=== PATIENT | female | born 1985 | race Hispanic/Latino ===

== ENCOUNTER 2020-07-11 01:41 | Emergency (ER) | payer SELFPAY ==
--- OUTSIDE RECORDS SUMMARY | 2020-07-11 01:50 | XMS REPORT | Continuity of Care Document ---
:1985 Author Organization [facility] t Address [address] [place] [address] Care Team Providers Name Role Phone Pcp Primary Care Physician Unavailable Dorian NICHOLS Attending Clinician Unavailable Ras HERRERA Attending Clinician Unavailable Unique Perez Attending Clinician Lon Lopez Attending Clinician Mason Schmidt Attending Clinician George Clark Jr Attending Clinician JANIYA GREGORY Attending Clinician Unavailable Carrington Reyes Attending Clinician Les Colin Attending Clinician Clayton Attending Clinician Mary Kramer Attending Clinician Payers Payer Name Policy Type Policy Number Effective Date Expiration Date Stu FLORES OPEN ACCESS [id number] 2018 00:00:00 MC POS Problems Condition Condition Condition Status Onset Resolution Last Treating Co mments Source Name Details Category Date Date Treatment Clinician Date OTHER Diagnosis Active 2019-06-17 Me moria 06-15 13:42:00 l OTHER 00:00: [place] 00 Active 06/16/2019 [facility] VAGINAL Diagnosis Active 2019-04-05 Me moria PAIN 2-17 16:02:00 l VAGINAL 00:00: [place] PAIN 00 Active 04/04/2019 [facility] OTHER Diagnosis Active 2018-04-23 Mem oria 3-08 23:00:00 l OTHER 00:00: [place] 00 Active 04/23/2018 [facility] SOB Diagnosis Active 2017-022017-12-09 Mem oria 0-04 09:34:00 l SOB 00:00: Naresh 00 Active 11/19/2017 [facility] [place] Problem Active 2019-06-18 M emoria a coli 5-05 22:13:59 l (organism) 00:00: Dewayne n [place] 00 a coli (organism) Active 06/20/2017 Problem 06/18/2019 06/20/2017 - MDRO E. coli - Urine/ - ESBL - urineProbl em added by Discern Expert. [facility] RECTAL Diagnosis Active 2017-06-20 Mem oria ABCESS 5-04 11:22:00 l RECTAL 09:00: [place] ABCESS 00 Active 06/19/2017 [facility] VAG DC Diagnosis Active 2017-02-28 Mem oria 1-13 11:34:00 l VAG DC 09:00: [place] 00 Active 02/28/2017 [facility] YEAST Diagnosis Active 2016-07-03 Mem oria INFECTION 5-18 11:18:00 l YEAST 00:00: Naresh INFECTION 00 Active 07/03/2016 [facility] MASS ON R Diagnosis Active 2014-09-29 Memoria GROIN AREA 8-14 14:47:00 l MASS ON 00:00: Naresh R GROIN 00 AREA Active 09/29/2014 [facility] PSYCH Diagnosis Active 2014-06-25 Mem oria (HALLUCINA 5-10 07:00:00 l TIONS) PSYCH 00:00: [place] "BAT BITE (HALLUCINA 00 ON ANKL TIONS) "BAT BITE ON ANKL Active 06/25/2014 [facility] Other Problem 2017-06-06 Memor ia specified 15:06:04 l bacterial Other Dewayne n agents as specified the cause bacterial of agents as diseases the cause classified of elsewhere diseases classified elsewhere 06/06/2017 [facility] Nicotine Problem 2018-06-08 Mem oria dependence 15:21:44 l , Nicotine Dewayne n cigarettes dependence , , uncomplica cigarettes aaron , uncomplica aaron 06/08/2018 [facility] Problem Resolve 2017-06-23 Me moria section d 01:34:05 l (procedure He rmann ) section (procedure ) Resolved Problem 06/23/2017 [facility] Drug abuse Problem Active 2019-06-18 M emoria (disorder) 22:13:59 l Drug Naresh abuse (disorder) Active Problem 06/18/2019 [facility] Bacterial Problem Active 2019-06-18 Me moria vaginosis 22:13:59 l (disorder) Dewayne n Bacterial vaginosis (disorder) Active Problem 06/18/2019 [facility] History of Past Illness Condition Condition Condition Status Onset Resolution Last Treating Co mments Source Name Details Category Date Date Treatment Clinician Date Anxiety Problem 2019-2019-04-06 2019-04-06 Memoria disorder, 2 22:46:23 22:46:23 l unspecifie Anxiety 18:00: Her núñez d disorder, 00 unspecifie d 04/04/2019 04/06/2019 [facility] Dissociati Problem 2019-04-06 2019-04-06 Memoria ve and 2 22:46:23 22:46:23 l conversion 18:00: Dewayne n disorder, Dissociati 00 unspecifie ve and d conversion disorder, unspecifie d 04/04/2019 04/06/2019 [facility] Acute Problem 2017-2018-06-08 2018-06-08 M emoria bronchitis 0-04 15:21:44 15:21:44 l , Acute 05:00: Naresh unspecifie bronchitis 00 d , unspecifie d 11/19/2017 06/08/2018 [facility] Acute Problem 2017-2017-06-23 2017-06-23 M emoria vaginitis - 01:34:05 01:34:05 l Acute 05:00: [place] vaginitis 00 06/20/2017 06/23/2017 [facility] Constipati Problem 2017-2017-06-23 2017-06-23 Memoria on, 06-20 01:34:05 01:34:05 l unspecifie 05:00: Dewayne n d Constipati 00 on, unspecifie d 06/20/2017 06/23/2017 [facility] Unspecifie Problem 2017-06-23 2017-06-23 Memoria d 5-05 01:34:05 01:34:05 l abdominal 05:00: Naresh pain Unspecifie 00 d abdominal pain 06/20/2017 06/23/2017 [facility] Encounter Problem 2017-06-06 2017-06-06 Memoria for 1-13 15:06:04 15:06:04 l screening 06:00: Naresh for Encounter 00 infections for with a screening predominan for tly sexual infections mode of with a transmissi predominan on tly sexual mode of transmissi on 02/28/2017 06/06/2017 [facility] Urinary Problem 2017-06-06 2017-06-06 Memoria tract 02-28 15:06:04 15:06:04 l infection, Urinary 06:00: Her núñez site not tract 00 specified infection, site not specified 02/28/2017 06/06/2017 [facility] Other Problem 2016-07-06 2016-07-06 M emoria specified 07-03 04:06:50 04:06:50 l noninflamm Other 05:00: Valerie nn atory specified 00 disorders noninflamm of vagina atory disorders of vagina 07/03/2016 07/06/2016 [facility] Discharge Problem 2014-10-02 2014-10-02 Memoria Diagnosis: 8-14 05:26:51 05:26:51 l Musculoske 05:00: Dewayne streeter letal pain Discharge 00 Diagnosis: Musculoske letal pain 09/29/2014 10/02/2014 [facility] Allergies, Adverse Reactions, Alerts Allergy Allergy Status Severity Reaction(s) Onset Inactive Treating Comm ents Source Name Type Date Date Clinician Sulfa DA Active U 2018- [facility] (Sulfona 9-11 [facility] Antibiot [facility] l of ics) [place] Sulfa DA Active U 2018- [facility]ulfona 7-27 [facility] No Known DA Active U 2018- [facility] Allergie 5-16 [facility] [place] s 00:00: d 00 [facility] Sulfa Propensi Active [place] (Sulfona ty to 11-15 Methodi mide adverse 00:00: st Antibiot reaction 00 ics) s to drug Sulfa Propensi Active Other (See Unknown, [facility] (Sulfona ty to Comments) 08-07 told as a [place] [facility] - mid adverse 00:00: child Medical Antibiot reaction 00 Center ics) s Sulfa DA Active U [facility] (Sulfona 06-21 [place] 00:00: d Antibiot 00 Medical ics) Center sulfa sulfa Active Memoria drugs drugs l Naresh Social History Social Habit Start Date Stop Date Quantity Comments Source Sex Assigned At [facility] Tobacco use and 2017-08-07 2017-08-07 Never used [facility] exposure 00:00:00 00:00:00 [facility] Alcohol intake 2017-08-07 2017-08-07 Current [facility] es - 00:00:00 00:00:00 non-drinker of [facility] nter alcohol (finding) Social History 2014-06-25 2014-06-25 [facility] 11:28:00 11:28:00 Smoking Status Start Date Stop Date Source Never smoker [facility] Medications Ordered Filled Start Stop Current Ordering Indication Dosage Frequency Signature Comments Components Source Medication Medication Date Date Medication? Clinician (SIG) Name Name Radha Yes Notes: Memoria - (Same As: l 03:02: Flexeril) Naresh 00 Acetaminoph Yes Notes: Frank tristian en 325 MG / 04-24 (Same as: l Hydrocodone 03:02: [place] Valerie nn Bitartrate 00 325/5) Do 5 MG Oral not exceed Tablet 4gm/day of [[place] acetaminop 5/325] hen. Ventolin 2017-02 Yes 2 puff, Memori a HFA 90 0-04 INHALER, l mcg/inh 07:43: Q4H, PRN Dewayne n inhalation 00 wheezing, aerosol coughing, with or adapter shortness of breath, # 8 gm, 0 Refill(s) Sodium 2017-02 No 3 mL, Memoria Chloride 0-04 Route: l 0.154 06:44: NEB, Drug [place] MEQ/ML 00 Form: Inhalant MISC, Solution Dosing Weight 55, kg, ONCE, Start date: 11/19/17 1:44:00 CDT, Stop date: 11/19/17 1:44:00 CDT Sodium 2017- No 1,000 mL, Memori a Chloride 0-04 1,000 l 0.9% 06:44: ml/hr, Naresh (Bolus) IV 00 Infuse Over: 1 hr, Route: IV, 1,000, Drug form: INJ, ONCE, Priority: STAT, Dosing Weight 55 kg, Start date: 11/19/17 1:44:00 CDT, Stop date: 11/19/17 1:44:00 CDT POLYETHYLEN 2018- Yes 17 gm, PO, Memoria E GLYCOL 5-05 Bedtime, l 3350 142 18:55: Dissolve Valerie nn MG/ML Oral 00 in 8 oz. Solution of water, [Miralax] X 7 day, # 1 ea, 1 Refill(s) Metronidazo Yes 500 mg = 1 Memoria le 500 MG 5-05 tab, PO, l Oral Tablet 18:53: Q12H, X 7 H ermann [Flagyl] 00 day, # 14 tab, 0 Refill(s) Omnipaque No Notes: Memori a 300 5-05 (Same l injectable 17:24: as:Omnipaq H ermann solution 00 ue 300). WASTE: F/P - Black; E - Municipal Trash [employer] Ondansetron No Notes: Frank tristian 5-05 (Same as: l 16:07: Zofran [place] 00 ODT) Saline No Notes: Memoria Flush 0.9% 5-05 (Same as: l 16:07: BD Naresh 00 Posiflush) Sodium No 1,000 mL, Memori a Chloride 5-05 1000 l 0.9% 16:07: ml/hr, [place] (Bolus) IV 00 Infuse Over: 1 hr, Route: IV, 1,000, Drug form: INJ, ONCE, Priority: STAT, Dosing Weight 53.182 kg, Start date: 06/20/17 11:07:00 CDT, Stop date: 06/20/17 11:07:00 CDT Ondansetron 2017- Yes 4 mg = 1 Me moria 4 MG 1-13 tab, PO, l Disintegrat 20:08: BID, PRN He rmann ing Tablet 00 Nausea and [Zofran] Vomiting, Dissolve tab under tongue, # 10 tab, 0 Refill(s) Zofran ODT No Notes: Memor ia 1-13 (Same as: l 20:08: Zofran [place] ODT) Cephalexin No 500 mg = 1 M emoria 500 MG Oral 1-13 cap, PO, l Capsule 19:53: BID, X 7 Dewayne n [Keflex] 00 day, # 14 cap, 0 Refill(s) Metronidazo No 500 mg = 1 Memoria le 500 MG 1-13 tab, PO, l Oral Tablet 19:52: BID, X 7 He rmann [Flagyl] 00 day, # 14 tab, 0 Refill(s) Zofran ODT No Notes: Memor ia 1-13 (Same as: l 18:41: Zofran Naresh ODT) Zithromax No Notes: Memori a 1-13 Take 1 l 18:40: hour Naresh 00 before or 2 hours after meals. (Same As: Zithromax) Rocephin No Notes: Memoria 1-13 (Same As: l 18:40: Rocephin) Naresh 00 azithromyci No 1,000 mg, M emoria n 500 mg 5-18 Route: PO, l oral tablet 16:25: Drug form: Union 00 TAB, ONCE, Dosing Weight 49.545, kg, Start date: 07/03/16 11:25:00 CDT, Stop date: 07/03/16 11:25:00 CDT, ABX Indication : Genital Tract Infection Rocephin No 250 mg, Memori a 5-18 Route: IM, l 16:25: Drug form: Union 00 PDR/INJ, ONCE, Dosing Weight 49.545, kg, Priority: STAT, Start date: 07/03/16 11:25:00 CDT, Stop date: 07/03/16 11:25:00 CDT, ABX Indication : Genital Tract Infection Acetaminoph Yes 1 tab, PO, Memoria en 300 MG / 8-14 Q6H, PRN l Codeine 20:35: for pain, Valerie nn Phosphate 00 X 3 day, # 30 MG Oral 12 tab, 0 Tablet Refill(s) [Tylenol with Codeine #3] Cyclobenzap Yes 10 mg, PO, Memoria rine 8-14 TID, PRN l hydrochlori 20:35: Muscle Herm flakita de 10 MG 00 Spasm, X 5 Oral Tablet day, # 15 [Flexeril] tab, 0 Refill(s) Saline No Notes: Memoria Flush 0.9% 09-29 (Same as: l 17:03: BD Naresh 00 Posiflush) Vital Signs Vital Name Observation Time Observation Value Comments Source Respitory Rate 2019-06-17 02:32:00 Memori al [place] Systolic (mm Hg) 2019-06-17 02:32:00 Frank rial Naresh Diastolic (mm Hg) 2019-06-17 02:32:00 Mem orial Naresh Height 2019-06-17 02:03:00 149.86 cm Memorial Naresh BMI Calculated 2019-06-17 02:03:00 Memori al [place] Weight 2019-06-17 02:03:00 [facility] Naresh Systolic (mm Hg) 2019-06-17 02:03:00 Frank rial Naresh Diastolic (mm Hg) 2019-06-17 02:03:00 Mem orial [place] Heart Rate 2019-06-17 02:03:00 [facility] [place] Respitory Rate 2019-06-17 02:03:00 Memori al Naresh Temperature Oral (F) 2019-06-17 02:03:00 98.5 F [facility] [place] Systolic (mm Hg) 2019-04-04 15:59:00 Frank rial [place] Diastolic (mm Hg) 2019-04-04 15:59:00 Mem orial [place] Heart Rate 2019-04-04 15:59:00 [facility] [place] Respitory Rate 2019-04-04 15:59:00 Memori al Naresh Temperature Oral (F) 2019-04-04 15:59:00 98.0 F [facility] [place] Height 2019-04-04 15:59:00 149.86 cm Memorial Naresh BMI Calculated 2019-04-04 15:59:00 Memori al [place] Weight 2019-04-04 15:59:00 [facility] [place] Heart Rate 2018-04-24 02:40:00 [facility] [place] Systolic (mm Hg) 2018-04-24 02:40:00 Frank rial [place] Diastolic (mm Hg) 2018-04-24 02:40:00 Mem orial [place] Temperature Oral (F) 2018-04-24 02:40:00 97.8 F [facility] Naresh Height 2018-04-24 02:40:00 149.86 cm Memorial Naresh Weight 2018-04-24 02:40:00 [facility] [place] BMI Calculated 2018-04-24 02:40:00 Memori al [place] Respitory Rate 2018-04-24 02:40:00 Memori al Naresh Systolic (mm Hg) 2017-11-19 07:19:00 Frank rial Naresh Diastolic (mm Hg) 2017-11-19 07:19:00 Mem orial [place] Respitory Rate 2017-11-19 07:19:00 Memori al Naresh Height 2017-11-19 06:00:00 149.86 cm [facility] Naresh Weight 2017-11-19 06:00:00 [facility] [place] BMI Calculated 2017-11-19 06:00:00 Memori al [place] Respitory Rate 2017-11-19 06:00:00 Memori al Naresh Heart Rate 2017-11-19 06:00:00 [facility] [place] Systolic (mm Hg) 2017-11-19 06:00:00 Frank rial [place] Diastolic (mm Hg) 2017-11-19 06:00:00 Mem orial [place] Temperature Oral (F) 2017-11-19 06:00:00 98.8 F [facility] Naresh Systolic (mm Hg) 2017-06-20 18:39:00 Frank rial [place] Diastolic (mm Hg) 2017-06-20 18:39:00 Mem orial [place] Heart Rate 2017-06-20 18:39:00 [facility] Naresh Respitory Rate 2017-06-20 18:39:00 Memori al Naresh Weight 2017-06-20 15:45:00 [facility] Naresh BMI Calculated 2017-06-20 15:45:00 Memori al Naresh Height 2017-06-20 15:45:00 149.86 cm [facility] Naresh Temperature Oral (F) 2017-06-20 15:45:00 98.3 F [facility] [place] Respitory Rate 2017-06-20 15:45:00 Memori al [place] Heart Rate 2017-06-20 15:45:00 [facility] Naresh Systolic (mm Hg) 2017-06-20 15:45:00 Frank rial Naresh Diastolic (mm Hg) 2017-06-20 15:45:00 Mem orial [place] Heart Rate 2017-02-28 20:16:00 [facility] [place] Respitory Rate 2017-02-28 20:16:00 Memori al Naresh Temperature Oral (F) 2017-02-28 20:16:00 98.2 F [facility] [place] Systolic (mm Hg) 2017-02-28 20:16:00 Frank rial Naresh Diastolic (mm Hg) 2017-02-28 20:16:00 Mem orial [place] Temperature Oral (F) 2017-02-28 17:01:00 98.5 F [facility] Naresh Systolic (mm Hg) 2017-02-28 17:01:00 Frank rial Naresh Diastolic (mm Hg) 2017-02-28 17:01:00 Mem orial [place] Heart Rate 2017-02-28 17:01:00 [facility] Naresh Respitory Rate 2017-02-28 17:01:00 Memori al Naresh Weight 2017-02-28 17:01:00 [facility] Naresh Height 2017-02-28 17:01:00 149.86 cm [facility] [place] BMI Calculated 2017-02-28 17:01:00 Memori al [place] BMI Calculated 2016-07-03 15:18:00 Memori al Naresh Weight 2016-07-03 15:18:00 [facility] [place] Systolic (mm Hg) 2016-07-03 15:18:00 Frank rial [place] Diastolic (mm Hg) 2016-07-03 15:18:00 Mem orial [place] Heart Rate 2016-07-03 15:18:00 [facility] Naresh Respitory Rate 2016-07-03 15:18:00 Memori al Naresh Temperature Oral (F) 2016-07-03 15:18:00 97.1 F [facility] Naresh Height 2016-07-03 15:18:00 149.86 cm [facility] Naresh Respitory Rate 2014-09-29 20:43:00 Memori al [place] Heart Rate 2014-09-29 20:43:00 [facility] [place] Systolic (mm Hg) 2014-09-29 20:43:00 Frank rial Naresh Diastolic (mm Hg) 2014-09-29 20:43:00 Mem orial Naresh Heart Rate 2014-09-29 20:21:00 [facility] Naresh Systolic (mm Hg) 2014-09-29 20:21:00 Frank rial [place] Diastolic (mm Hg) 2014-09-29 20:21:00 Mem orial Naresh Respitory Rate 2014-09-29 20:21:00 Memori al [place] Heart Rate 2014-09-29 19:21:00 [facility] Naresh Respitory Rate 2014-09-29 19:21:00 Memori al Naresh Systolic (mm Hg) 2014-09-29 19:21:00 Frank rial Naresh Diastolic (mm Hg) 2014-09-29 19:21:00 Mem orial Naresh Weight 2014-09-29 16:48:00 [facility] [place] Temperature Oral (F) 2014-09-29 16:48:00 97.2 F [facility] Naresh BMI Calculated 2014-09-29 16:48:00 Memori al Naresh Height 2014-09-29 16:48:00 149.86 cm [facility] Naresh Weight 2014-06-25 10:59:00 [facility] Naresh BMI Calculated 2014-06-25 10:59:00 Memori al [place] Respitory Rate 2014-06-25 10:59:00 Memori al [place] Systolic (mm Hg) 2014-06-25 10:59:00 Frank rial [place] Diastolic (mm Hg) 2014-06-25 10:59:00 Mem orial [place] Heart Rate 2014-06-25 10:59:00 [facility] [place] Temperature Oral (F) 2014-06-25 10:59:00 98.6 F [facility] Naresh Height 2014-06-25 10:59:00 147.32 cm [facility] Naresh Procedures Procedure Date / Time Performed Performing Clinician [facility] Plan of Care Planned Activity Planned Date Details Comments Source Future Scheduled 2019-10-[address] [facility] - Test 00:00:00 (#1) [code = Medical Center INFLUENZA VACCINE (#1)] Future Scheduled [address] [facility] - Test 00:00:00 malignant neoplasm Medical C enter of cervix (procedure) [code = 002182221] Encounters Start End Encounter Admission Attending Care Care Encounter Source Date/Time Date/Time Type Type Clinicians Facility Department ID 2019-09-22 2019-09-23 Emergency CERVANTESJACKIE [facility] [id number] [place] 22:30:35 01:35:00 RUIZ HORTA [facility] 2019-09-22 2019-09-22 Emergency LUCÍA HERRERA [facility] [id number] [place] 22:40:11 23:07:40 [facility] 2019-06-16 2019-06-16 Outpatient Chris [facility] [id number] 20:52:24 21:48:00 Beatriz Calhoun 08 2019-06-16 2019-06-16 Emergency E [facility]NE [facility]NE [id number] [facility]NE 20:52:00 20:52:00 2019-04-11 2019-04-11 Outpatient [facility] [id number] [facility] 00:00:00 00:00:00 2019-04-05 2019-04-05 Outpatient [facility] [id number] [place] 00:00:00 00:00:00 [facility] 2019-04-04 2019-04-04 Outpatient Jessica [facility] [id number] 09:57:49 13:54:00 Antonio Forrest 07 2019-04-04 2019-04-04 Emergency E MHNE MHNE [id number] [facility]NE 09:57:00 09:57:00 2018-12-02 2018-12-02 Outpatient [facility] [id number] [facility] 00:00:00 00:00:00 2018-10-29 2018-10-29 Outpatient [facility] [id number] [facility] 08:09:15 08:09:15 2018-04-23 2018-04-23 Outpatient Brayan [facility] [id number] 20:04:00 21:25:00 Michael Cuevas 2018-03-03 2018-03-03 Outpatient [facility] [id number] [place] 00:00:00 00:00:00 [facility] 2017-11-19 2017-11-19 Outpatient Eduardo [facility] [id number] 00:58:00 03:04:00 Danny 05 2017-09-28 2017-09-28 Outpatient [facility] [id number] [facility] 00:00:00 00:00:00 2017-08-28 2017-08-28 Outpatient [facility] [id number] HCP 08:24:22 08:24:22 2017-06-20 2017-06-20 Outpatient Schmidt, [facility] [id number] 10:43:00 14:28:00 Michael Cuevas 2017-04-29 2017-04-29 Emergency [facility] [id number] [place] 15:15:37 15:15:37 Health 2017-02-28 2017-02-28 Outpatient Amy, [facility] [id number] 10:54:00 14:18:00 Cj Shultz 2017-02-28 2017-02-28 Outpatient Amy, [facility] [id number] 10:54:00 14:18:00 Cj Shultz 2016-09-19 2016-09-20 Outpatient [facility] [id number] [place] 00:00:00 00:00:00 [facility] 2016-07-03 2016-07-03 Outpatient Dixie, [facility] [id number] 10:13:00 12:06:00 Eyal Yarely Les 2014-09-29 2014-09-29 Outpatient Clayton, [facility] [id number] 11:34:00 15:56:00 Fidencio 2014-06-25 2014-06-25 Outpatient Williams, [facility] [id number] 05:53:00 06:55:00 Renetta Hernandez 00 Results Test Description Test Time Test Comments Results Result Sour e Comments MOLECULAR 2019-04-04 [facility] 18:50:00 *NA*(04/04/19 [facility] 12:50 PM) MOLECULAR 2019-04-04 Negative [facility] 18:50:00 *NA*(04/04/19 Naresh 12:50 PM) MOLECULAR 2019-04-04 Negative [facility] 18:50:00 *NA*(04/04/19 Naresh 12:50 PM) HEMATOLOGY 2019-04-04 0.9 Memorial 16:39:00 Naresh HEMATOLOGY 2019-04-04 0.6 Memorial 16:39:00 [facility] HEMATOLOGY 2019-04-04 5.0 Memorial 16:39:00 [facility] HEMATOLOGY 2019-04-04 1.8 Memorial 16:39:00 [facility] HEMATOLOGY 2019-04-04 0.5 Memorial 16:39:00 [facility] HEMATOLOGY 2019-04-04 0.1 Memorial 16:39:00 [facility] HEMATOLOGY 2019-04-04 0.1 Memorial 16:39:00 Naresh URINE AND STOOL 2019-04-04 Yellow [facility] 16:39:00 *NA*(04/04/19 Union 10:39 AM) URINE AND STOOL 2019-04-04 Clear (04/04/19 Memor ial 16:39:00 10:39 AM) [facility] URINE AND STOOL 2019-04-04 16:39:00 Test Item Value Reference Range Interpretation Comme nts UA Spec Grav (test code = UA Spec Grav) 1.019 1 [facility] [id number] 16:39:00 Test Item Value Reference Range Interpretation Comments UA pH (test code = UA pH) 6.0 1 5.0-8.0 [facility] [id number] 16:39:00Negative *NA*(04/04/19 10:39 AM)[facility] [id number] 16:39:00Negative (04/04/19 10:39 AM) [facility] [id number] 16:39:00Negative (04/04/19 10:39 AM) [facility] [id number] 16:39:00Negative (04/04/19 10:39 AM) [facility] [id number] 16:39:001[facility] [id number] 16:39:002[facility]ann[facility] [id number] 16:39:0092[facility]ann[facility] [id number] 16:39:009[facility]ann[facility] [id number] 16:39:000.80[facility]ann[facility] [id number] 16:39:43448Iqfarknc HermannCHEM [id number] 16:39:004.2[facility]ann[facility] [id number] 16:39:62959 [facility] [id number] 16:39:0031[facility]ann[facility] PANEL 2019-04-04 16:39:008.9[facility]ann[facility] [id number] 16:39:006.7[facility]ann[facility] [id number] 16:39:003.4[facility]ann[facility] [id number] 16:39:0025[facility]annCHE[facility] [id number] 16:39:0025[facility]annCHE[facility] [id number] 16:39:0072[facility]annCHE[facility] [id number] 16:39:000.4 [facility] [id number] 16:39:008.2[facility]ann[facility] PANEL 2019-04-04 16:39:00 Test Item Value Reference Range Interpretation Comments B/C Ratio (test code = B/C Ratio) 11 1 6-25 [facility] [id number] 16:39:003.3[facility]ann[facility] PANEL 2019-04-04 16:39:00 Test Item Value Reference Range Interpretation Comments A/G Ratio (test code = A/G Ratio) 1.0 1 0.7-1.6 [facility] [id number] 16:39:0097[facility]ann[facility] PANEL 2019-04-04 16:39:01911Yefugxrw [id number] 16:39:00Negative *NA*(04/04/19 10:39 AM)[facility] [id number] 16:39:007.5[facility] InwqcvgHXYXQIQHEC0110-09-50 16:39:004.61[facility] FmlamwmAYQTAHLVEX0906-94-73 16:39:0014.1[facility] TjrwdhiOVVSWGPIXM6958-74-66 16:39:0042.3[facility] [id number] 16:39:0091.7[facility]orial [id number] 16:39:00 Test Item Value Reference Range Interpretation Comments MCH (test code = MCH) 30.6 pg 27.0-31.0 Memorial [id number] 16:39:0033.3[facility]ann[facility]MATOLOGY 2019-04-04 16:39:0013.0[facility] [id number] 16:39:43681Fclgutvv FswmwnuVQUIUVAVUA6690-68-33 16:39:0010.0Memoriri [id number] 16:39:00Normal (04/04/19 10:39 AM)[id number] 16:39:00 Normal (04/04/19 10:39 AM)[facility] HospitalUwgslztUEHWZLNGZH7332-85-21 16:39:0067.1 [facility] Hos[id number] 16:39:0024.5[facility] HermannHEMATOLOGY 2019-04-04 16:39:006.9[facility]annURINALYSIS [id number] 02:10:00 Test Item Value Reference Range Interpretation Comments UA COLOR (test code = COLU) Yellow Yellow UA APPEARANCE (test code = Slightly-Cloudy Clear APPU) UA GLUCOSE DIPSTICK (test Negative Negative code = DGLUU) UA BILIRUBIN DIPSTICK (test Negative Negative code = BILU) UA KETONE DIPSTICK (test code 15 (1+) mg/dL Negative A = KETU) UA SPECIFIC GRAVITY (test 1.030 <1.030 code = SGU) UA BLOOD DIPSTICK (test code Negative Negative = SAMI) UA PH DIPSTICK (test code = 6.0 5.0-8.0 TWIN) UA PROTEIN DIPSTICK (test 30 (1+) mg/dL Negative A code = PROU) UA UROBILINOGEN DIPSTICK 2.0 mg/dL Negative A (test code = URO) UA NITRITE DIPSTICK (test Negative Negative code = ANA) UA LEUKOCYTE ESTERASE NEGATIVE Negative DIPSTICK (test code = LEUU) UA WBC (test code = WBCU) 0-3 /HPF <4-5 UA RBC (test code = RBCU) 0-3 /HPF <4-5 UA BACTERIA (test code = Rare /HPF None-Rare BACU) UA SQUAMOUS CELLS (test code 0-5 (RARE) /HPF 0-5 (RARE) = SQU) UA MUCUS (test code = MUCU) 4+ /LPF <Rare A UR HCG [id number] 02:10:00 Test Item Value Reference Range Interpretation Comments UR HCG QUAL (test code = HCGQLU) NEGATIVE URINALYSIS [id number] 02:10:00 Test Item Value Reference Range Interpretation Comments UA COLOR (test code = COLU) Yellow Yellow UA APPEARANCE (test code = Slightly-Cloudy Clear APPU) UA GLUCOSE DIPSTICK (test Negative Negative code = DGLUU) UA BILIRUBIN DIPSTICK (test Negative Negative code = BILU) UA KETONE DIPSTICK (test code 15 (1+) mg/dL Negative A = KETU) UA SPECIFIC GRAVITY (test 1.030 <1.030 code = SGU) UA BLOOD DIPSTICK (test code Negative Negative = SAMI) UA PH DIPSTICK (test code = 6.0 5.0-8.0 TWIN) UA PROTEIN DIPSTICK (test 30 (1+) mg/dL Negative A code = PROU) UA UROBILINOGEN DIPSTICK 2.0 mg/dL Negative A (test code = URO) UA NITRITE DIPSTICK (test Negative Negative code = ANA) UA LEUKOCYTE ESTERASE NEGATIVE Negative DIPSTICK (test code = LEUU) UA WBC (test code = WBCU) 0-3 /HPF <4-5 UA RBC (test code = RBCU) 0-3 /HPF <4-5 UA BACTERIA (test code = Rare /HPF None-Rare BACU) UA SQUAMOUS CELLS (test code 0-5 (RARE) /HPF 0-5 (RARE) = SQU) UA MUCUS (test code = MUCU) 4+ /LPF <Rare A UR HCG [id number] 02:10:00 Test Item Value Reference Range Interpretation Comments UR HCG QUAL (test code = HCGQLU) NEGATIVE NEGATIVE CBC W/AUTO [id number] 04:41:00 Test Item Value Reference Range Interpretation Comments WHITE BLOOD CELL (test code = 7.6 x10 3/uL 3.2-11.5 N WBC) RED BLOOD CELL (test code = 4.01 x10(6)/m 3.70-5.10 N RBC) HEMOGLOBIN (test code = HGB) 12.8 g/dL 12.0-15.0 N HEMATOCRIT (test code = HCT) 37.6 % 35.7-44.8 N MEAN CELL VOLUME (test code = 94 fL 80-100 N MCV) MEAN CELL HGB (test code = MCH) 31.8 pg 26.2-33.8 N MEAN CELL HGB CONCENTRATION 33.9 g/dL 30.0-34.0 N (test code = MCHC) RED CELL DISTRIBUTION WIDTH 12.5 % 11.3-14.5 N (test code = RDW) PLATELET COUNT (test code = 161 x10 3/uL 130-408 N PLT) MEAN PLATELET VOLUME (test code 10.8 fl 6.4-10.5 H = MPV) NEUTROPHIL % (test code = NT%) 68.5 % 40.0-70.0 N LYMPHOCYTE % (test code = LY%) 22.4 % 20-40 N MONOCYTE % (test code = MO%) 6.4 % 1-10 N EOSINOPHIL % (test code = EO%) 2.0 % 1.0-5.0 N BASOPHIL % (test code = BA%) 0.7 % 0.0-1.0 N NEUTROPHIL # (test code = NT#) 5.2 x10 3/uL 1.6-7.2 N LYMPHOCYTE # (test code = LY#) 1.70 x10 3/uL 1.1-2.7 N MONOCYTE # (test code = MO#) 0.5 x10 3/uL 0.3-0.8 N EOSINOPHIL # (test code = EO#) 0.2 x10 3/uL 0.0-0.5 N BASOPHIL # (test code = BA#) 0.1 x10 3/uL 0.0-0.1 N BASIC METABOLIC [id number] 04:36:00 Test Item Value Reference Range Interpretation Comments SODIUM (test code 137 mmol/L 135-145 N = NA) POTASSIUM (test 4.4 mmol/L 3.6-5.0 N code = K) CHLORIDE (test 107 mmol/L 101-111 N code = CL) CARBON DIOXIDE 28 mmol/L 21-31 N (test code = CO2) GLUCOSE (test code 92 mg/dl 70-100 N = GLU) BLOOD UREA 9 mg/dl 6-20 N NITROGEN (test code = BUN) GLOMERULAR >=60 max >60 The estimated FILTRATION RATE estimate glomerular (test code = GFR) filtration rate is computed usingpatient ra ce, age (>18), sex, and serum creatinin e. If anyof the neede d data elements a re missing the Laboratory thuan ot compute an estimation of t he glomerular filtration rate . CREATININE (test 0.66 mg/dL 0.44-1.03 N code = CREAT) CALCIUM (test code 8.2 mg/dL 8.5-10.5 L = CA) [id number] 22:45:00 Test Item Value Reference Range Interpretation Comments AMMONIA (test code = AMM) 23 umol/L 11-35 N CBC W/AUTO [id number] 22:08:00 Test Item Value Reference Range Interpretation Comments WHITE BLOOD CELL (test code = 7.6 x10 3/uL 3.2-11.5 N WBC) RED BLOOD CELL (test code = 3.89 x10(6)/m 3.70-5.10 N RBC) HEMOGLOBIN (test code = HGB) 12.2 g/dL 12.0-15.0 N HEMATOCRIT (test code = HCT) 37.1 % 35.7-44.8 N MEAN CELL VOLUME (test code = 95 fL 80-100 N MCV) MEAN CELL HGB (test code = MCH) 31.4 pg 26.2-33.8 N MEAN CELL HGB CONCENTRATION 32.9 g/dL 30.0-34.0 N (test code = MCHC) RED CELL DISTRIBUTION WIDTH 13.2 % 11.3-14.5 N (test code = RDW) PLATELET COUNT (test code = 158 x10 3/uL 130-408 N PLT) MEAN PLATELET VOLUME (test code 10.0 fl 6.4-10.5 N = MPV) NEUTROPHIL % (test code = NT%) 46.4 % 40.0-70.0 N LYMPHOCYTE % (test code = LY%) 41.4 % 20-40 H MONOCYTE % (test code = MO%) 8.3 % 1-10 N EOSINOPHIL % (test code = EO%) 2.7 % 1.0-5.0 N BASOPHIL % (test code = BA%) 1.2 % 0.0-1.0 H NEUTROPHIL # (test code = NT#) 3.5 x10 3/uL 1.6-7.2 N LYMPHOCYTE # (test code = LY#) 3.10 x10 3/uL 1.1-2.7 H MONOCYTE # (test code = MO#) 0.6 x10 3/uL 0.3-0.8 N EOSINOPHIL # (test code = EO#) 0.2 x10 3/uL 0.0-0.5 N BASOPHIL # (test code = BA#) 0.1 x10 3/uL 0.0-0.1 N COMPREHENSIVE METABOLIC [id number] 22:07:00 Test Item Value Reference Range Interpretation Comments SODIUM (test code = 138 mmol/L 135-145 N NA) POTASSIUM (test 3.5 mmol/L 3.6-5.0 L code = K) CHLORIDE (test code 108 mmol/L 101-111 N = CL) CARBON DIOXIDE 26 mmol/L 21-31 N (test code = CO2) GLUCOSE (test code 81 mg/dl 70-100 N = GLU) BLOOD UREA NITROGEN 10 mg/dl 6-20 N (test code = BUN) GLOMERULAR >=60 max >60 The estimated FILTRATION RATE estimate glomerular (test code = GFR) filtration rate is computed usingpatient ra ce, age (>18), sex, and serum creatinin e. If anyof the ne eded data elements a re missing the Laboratory thuan ot compute an estimation of t he glomerular filtration rate . CREATININE (test 0.64 mg/dL 0.44-1.03 N code = CREAT) TOTAL PROTEIN (test 5.4 g/dL 6.7-8.2 L code = PROT) ALBUMIN (test code 3.2 g/dL 3.2-5.5 N = ALB) CALCIUM (test code 7.9 mg/dL 8.5-10.5 L = CA) BILIRUBIN TOTAL 0.20 mg/dL 0.2-1.3 N (test code = BILT) SGOT/AST (test code 21 U/L 10-42 N = AST) SGPT/ALT (test code 19 U/L 10-60 N = ALT) ALKALINE 52 U/L 42-121 N PHOSPHATASE (test code = ALKP) CREATINE KINASE ([id number] 22:07:00 Test Item Value Reference Range Interpretation Comments CREATINE KINASE (CK) (test code = CK) 123 U/L 0-210 N [id number] 22:07:00 Test Item Value Reference Range Interpretation Comments LIPASE (test code = LIP) 28 IU/L 22-51 N [id number] 22:07:00 Test Item Value Reference Range Interpretation Comments ACETAMINOPHEN (test code = ACET) < 10.0 ug/ml 10.0-30.0 L [id number] 22:07:00 Test Item Value Reference Range Interpretation Comments SALICYLATE (test code = TAWANNA) < 4.0 mg/dl 0.0-30.0 N [id number] 22:07:00 Test Item Value Reference Range Interpretation Comments ALCOHOL (test code = < 5 mg/dl Interpr etive Data:il: ALC) Ethanol Level To convert into le gal units, divide r esult by 1,000 UR HCG [id number] 22:05:00 Test Item Value Reference Range Interpretation Comments UR HCG QUAL (test code = HCGQLU) NEGATIVE NEGATIVE DRUGS OF ABUSE SCREEN [id number] 22:05:00 Test Item Value Reference Range Interpretation Comments UR COCAINE (test code POSITIVE NEGATIVE A This i s a toxicology = COCAU) qualitative scr eening test only. Ifconfirmatory testing is desired please request drug screenconf irmation. These results a re unconfirmed and should beused only for medical purposes. Cut-o ff concentration f or Cocaine is 300 ng/mLRec ommended screening cut-o ff concentrations by [facility] use and [facility]. UR CANABINOIDS (test NEGATIVE NEGATIVE This is a toxicology code = CANU) qualitative scr eening test only. Ifconfirmatory testing is desired please request drug screenconf irmation. These results a re unconfirmed and should beused only for medical purposes. Cut-o ff concentration f or THC is 50 ng/mLRecomme nded screening cut-o ff concentrations by thebstance Ab use and [facility]. UR AMPHETAMINE (test POSITIVE NEGATIVE A The ing estion of natural code = AMPHU) herbal and naveen nt productscontain ing Ephedra/Ephedra -Metabolit es can produce in urineone or mor e substances capa ble of cross-reacting withAmphetamine /Methamphe tamine immunoas says. This testprovid es a preliminary res ult only. A more specificalterna tive chemical method must be used to obtain aconfirmed analytical resu lt. This is a toxicology qualitative scr eening test only. Ifconfirmatory testing is desired please request drug screenconf irmation. These results a re unconfirmed and should beused only for medical purposes. Cut-o ff concentration f or Amphetamines is 1000 ng/mLRecommende d screening cut-o ff concentrations by the[facility] Ab use and [facility] Administration. UR BARBITURATE (test NEGATIVE NEGATIVE This is a toxicology code = BARBQLU) qualitative screening test only. Ifconfirmatory testing is desired please request drug screenconf irmation. These results a re unconfirmed and should beused only for medical purposes. Cut-o ff concentration f or Barbiturates is 200 ng/mLRecommende d screening cut-o ff concentrations by the[facility] Ab use and [facility] Administration. UR BENZODIAZEPINE NEGATIVE NEGATIVE This is a toxicology (test code = BENZU) qualitat chance screening test only. Ifconfirmatory testing is desired please request drug screenconf irmation. These results a re unconfirmed and should beused only for medical purposes. Cut-o ff concentration f or Benzodiazepines is 200 ng/mLRecommende d screening cut-o ff concentrations by the[facility] Ab use and [facility]. UR OPIATES QUAL (test NEGATIVE NEGATIVE This i s a toxicology code = OPIAQLU) qualitative screening test only. Ifconfirmatory testing is desired please request drug screenconf irmation. These results a re unconfirmed and should beused only for medical purposes. Cut-o ff concentration f or Opiates is 300 ng/mLRec ommended screening cut-o ff concentrations by [facility] Ab use and [facility]. UR PHENCYCLIDINE NEGATIVE NEGATIVE This is a t oxicology (PCP) (test code = qualitati ve screening PHENCU) test only. Ifconfirmatory testing is desired please request drug screenconf irmation. These results a re unconfirmed and should beused only for medical purposes. Cut-o ff concentration f or PCP is 25 ng/mLRecomme nded screening cut-o ff concentrations by [facility] and [facility]. URINALYSIS [id number] 21:58:00 Test Item Value Reference Range Interpretation Comments UA COLOR (test code = COLU) YELLOW YELLOW UA APPEARANCE (test code = APPU) Clear CLEAR UA GLUCOSE DIPSTICK (test code = NEGATIVE NEGATIVE DGLUU) UA BILIRUBIN DIPSTICK (test code = NEGATIVE NEGATIVE BILU) UA KETONE DIPSTICK (test code = NEGATIVE NEGATIVE KETU) UA SPECIFIC GRAVITY (test code = 1.029 1.001-1.030 SGU) UA BLOOD DIPSTICK (test code = SAMI) NEGATIVE NEGATIVE UA PH DIPSTICK (test code = TWIN) 6.0 5.0-9.0 UA PROTEIN DIPSTICK (test code = NEGATIVE NEGATIVE PROU) UA UROBILINOGEN DIPSTICK (test code 2.0 <=1.0 A = URO) UA NITRITE DIPSTICK (test code = NEGATIVE NEGATIVE ANA) UA ASCORBIC ACID DIPSTICK (test NEGATIVE code = AAU) UA LEUKOCYTE ESTERASE DIPSTICK TRACE NEGATIVE A (test code = LEUU) UA WBC (test code = WBCU) 0-5 /HPF 0-5 UA RBC (test code = RBCU) 0-5 /HPF 0-5 UA EPITHELIAL CELLS (test code = RARE /LPF NONE-FEW EPIU) UA BACTERIA (test code = BACU) None /HPF NONE SEEN - CT HEAD/BRAIN W/O [id number] 21:56:00Patient Name: JOHN STARKS Unit No: [id number] EXAMS: CPT: [id number] CT HEAD/BRAIN W/O CONT [id number] CT HEAD WITHOUT CONTRAST, 09/16/2018. COMPARISON:None. CLINICAL: AMS. Comment: Noncontrast transaxial plus sagittal/coronal reformatted images were obtained. The lateral, third and fourth ventricles appear within normal limits. There is no midline shift, acute intraparenchymal hemorrhage, major territorial i nfarction or extracerebral fluid collection. The calvarium is intact. The visualized paranasal sinuses and mastoids are well pneumatized. All CT scans at this facilityare performed using dose optimization techniques including the following: Automated exposure co ntrol. IMPRESSION: No evidence of acute intracranial hemorrhage. at 2156 Reported and signed by: Luis Angel Marrero MD CC: Ted Villatoro MD; Norman Machado MD Technologist: Stu Wilburn CTDI: 25.56 DLP: 367.23 Trscr Dt/Tm: 02/2018 (2155) by:[email or web address] Orig Print D/T: S: 09/16/2018 (2158) BATCH NO: N/A Name: JOHN STARKS [facility] ED Phys: [facility] [address] [facility] 1985 Age: 32 Sex: F [place] [id number] Loc: N.ERS Exam Date: 09/16/2018 Status: PRE ER PH: FAX: PAGE 1 Signed Report - XR CHEST 1 [id number] 21:41:00Patient Name: JOHN STARKS Unit No: [id number] EXAMS: CPT: [id number] XR CHEST 1 V [id number] PORTABLE CHEST, 09/16/2018. Comparison: None. CLINICAL: Chest pain. COMMENT: The heart, mediastinum, hilar regions and pulmonary vasculature appear within normal limits. The lungs are free of active disease. The bony thorax is intact. IMPRESSION: No evidence to suggest active cardiopulmonary disease. at 2141 Reported and signed by: Luis Angel Marrero MD CC: Ted Villatoro MD; Norman Machado MD Technologist: Kathy Santos Time: DAP (Gy m2): Air Kerma (mGy): Trscr Dt/Tm: 09/16/2018 (2140) by:[email or web address] Orig Print D/T: S: 09/16/2018 (2143) BATCH NO: N/A Name: JOHN STARKS [facility] Phys: Norman Sauer MD [address] : 1985 Age: 32 Sex: [place] [address] Loc: N.ERS Exam Date: 09/16/2018 Status: PRE ER PH: FAX: PAGE 1 Signed ReportURINALYSIS [id number] 20:36:00 Test Item Value Reference Range Interpretation Comments UA COLOR (test code = COLU) YELLOW YELLOW UA APPEARANCE (test code = APPU) Cloudy CLEAR UA GLUCOSE DIPSTICK (test code = NEGATIVE NEGATIVE DGLUU) UA BILIRUBIN DIPSTICK (test code = NEGATIVE NEGATIVE BILU) UA KETONE DIPSTICK (test code = NEGATIVE NEGATIVE KETU) UA SPECIFIC GRAVITY (test code = 1.012 1.001-1.030 SGU) UA BLOOD DIPSTICK (test code = 2+ NEGATIVE SAMI) UA PH DIPSTICK (test code = TWIN) 5.0 5.0-9.0 UA PROTEIN DIPSTICK (test code = NEGATIVE NEGATIVE PROU) UA UROBILINOGEN DIPSTICK (test NEGATIVE <=1.0 code = URO) UA NITRITE DIPSTICK (test code = NEGATIVE NEGATIVE ANA) UA ASCORBIC ACID DIPSTICK (test NEGATIVE code = AAU) UA LEUKOCYTE ESTERASE DIPSTICK 1+ NEGATIVE A (test code = LEUU) UA WBC (test code = WBCU) 11-20 /HPF 0-5 UA RBC (test code = RBCU) 0-5 /HPF 0-5 UA EPITHELIAL CELLS (test code = MANY /LPF NONE-FEW EPIU) UA BACTERIA (test code = BACU) 1+ /HPF NONE SEEN A UA MUCUS (test code = MUCU) 3+ /LPF NONE SEEN UR HCG [id number] 20:29:00 Test Item Value Reference Range Interpretation Comments UR HCG QUAL (test code = HCGQLU) NEGATIVE NEGATIVE RAPID PLASMA [id number] 23:32:00 Test Item Value Reference Range Interpretation Comments RAPID PLASMA NONREACTIVE NONREACTIVE REAGIN (test code ~~~~~~~~~~ ~~~~~~~~~~~~~~ = RPR) ~~~~~~~~~~~~~~~ ~~~~~~~~~ ~REACTIVE RESUL TS ARE VERIFIED BY REP EAT TESTING.SPECIME NS WITH REACTIVE RESULT S ARE SENT TO [facility] FOR CONFIRMATIO N BY FTA.~~~~~~~~~~~ ~~~~~~~~~ ~~~~~~~~~~~~~~~ ~~~~~~~~~ ~~~~~ BASIC METABOLIC [id number] 21:24:00 Test Item Value Reference Range Interpretation Comments SODIUM (test code = 137 mmol/L 137-145 N NA) POTASSIUM (test code 4.0 mmol/L 3.4-5.0 N = K) CHLORIDE (test code = 102 mmol/L 98-107 N CL) CARBON DIOXIDE (test 28 mmol/L 22-30 N code = CO2) GLUCOSE (test code = 88 mg/dL 74-106 N GLU) BLOOD UREA NITROGEN 10 mg/dL 7-17 N (test code = BUN) GLOMERULAR FILTRATION 123 >60 The es timated RATE (test code = glomerular filtration GFR) rate is compute d usingpatient ra ce, age (>18), sex, and serum creatinine. If anyof the needed data elements are mi ssing the Laboratory cannot compute an nilson mation of the glomerul ar filtration rate . CREATININE (test code 0.6 mg/dL 0.5-1.0 N = CREAT) CALCIUM (test code = 9.2 mg/dL 8.4-10.2 N CA) LIVER FUNCTION [id number] 21:24:00 Test Item Value Reference Range Interpretation Comments TOTAL PROTEIN (test 7.2 g/dL 6.3-8.2 N code = PROT) ALBUMIN (test code = 4.2 g/dL 3.5-5.0 N ALB) BILIRUBIN TOTAL (test 0.3 mg/dL 0.2-1.3 N code = BILT) BILIRUBIN CONJUGATED 0 mg/dL 0-0.3 N ~~~~~~~ ~~~~~~~~~~~~~~ (test code = BILCON) ~~~~~~~ ~~~~~~~~~~~~~~ ~~~~~~~~~~~~~~~ ~~~CON JUGATED BILIRUB IN IS THE REPLACEMENT ASSAY FOR DIRECTBILIRUBIN .~~~~~ ~~~~~~~~~~~~~~~ ~~~~~~ ~~~~~~~~~~~~~~~ ~~~~~~ ~~~~~~~~~~~~~ BILIRUBIN UNCONJUGATED 0 mg/dL 0-1.1 N (test code = BILUNC) SGOT/AST (test code = 25 U/L 15-46 N AST) SGPT/ALT (test code = 16 U/L 13-69 N ALT) ALKALINE PHOSPHATASE 63 U/L 38-126 N (test code = ALKP) [id number] 21:24:00 Test Item Value Reference Range Interpretation Comments LIPASE (test code = LIP) U/L 23-300 BASIC METABOLIC [id number] 21:24:00 Test Item Value Reference Range Interpretation Comments SODIUM (test code = 137 mmol/L 137-145 N NA) POTASSIUM (test code 4.0 mmol/L 3.4-5.0 N = K) CHLORIDE (test code = 102 mmol/L 98-107 N CL) CARBON DIOXIDE (test 28 mmol/L 22-30 N code = CO2) GLUCOSE (test code = 88 mg/dL 74-106 N GLU) BLOOD UREA NITROGEN 10 mg/dL 7-17 N (test code = BUN) GLOMERULAR FILTRATION 123 >60 The es timated RATE (test code = glomerular filtration GFR) rate is compute d usingpatient ra ce, age (>18), sex, and serum creatinine. If anyof the needed data elements are mi ssing the Laboratory cannot compute an nilson mation of the glomerul ar filtration rate . CREATININE (test code 0.6 mg/dL 0.5-1.0 N = CREAT) CALCIUM (test code = 9.2 mg/dL 8.4-10.2 N CA) LIVER FUNCTION [id number] 21:24:00 Test Item Value Reference Range Interpretation Comments TOTAL PROTEIN (test 7.2 g/dL 6.3-8.2 N code = PROT) ALBUMIN (test code = 4.2 g/dL 3.5-5.0 N ALB) BILIRUBIN TOTAL (test 0.3 mg/dL 0.2-1.3 N code = BILT) BILIRUBIN CONJUGATED 0 mg/dL 0-0.3 N ~~~~~~~ ~~~~~~~~~~~~~~ (test code = BILCON) ~~~~~~~ ~~~~~~~~~~~~~~ ~~~~~~~~~~~~~~~ ~~~CON JUGATED BILIRUB IN IS THE REPLACEMENT ASSAY FOR DIRECTBILIRUBIN .~~~~~ ~~~~~~~~~~~~~~~ ~~~~~~ ~~~~~~~~~~~~~~~ ~~~~~~ ~~~~~~~~~~~~~ BILIRUBIN UNCONJUGATED 0 mg/dL 0-1.1 N (test code = BILUNC) SGOT/AST (test code = 25 U/L 15-46 N AST) SGPT/ALT (test code = 16 U/L 13-69 N ALT) ALKALINE PHOSPHATASE 63 U/L 38-126 N (test code = ALKP) [id number] 21:24:00 Test Item Value Reference Range Interpretation Comments LIPASE (test code = LIP) 72 U/L 23-300 N UA RFLX MICR CULT IF [id number] 21:16:00 Test Item Value Reference Range Interpretation Comments UA COLOR (test code = Yellow Yellow COLU) UA APPEARANCE (test Slightly-Cloudy Clear code = APPU) UA GLUCOSE DIPSTICK Negative Negative (test code = DGLUU) UA BILIRUBIN DIPSTICK Negative Negative (test code = BILU) UA KETONE DIPSTICK Negative mg/dL Negative (test code = KETU) UA SPECIFIC GRAVITY 1.019 <1.030 (test code = SGU) UA BLOOD DIPSTICK Negative Negative (test code = SAMI) UA PH DIPSTICK (test 6.0 5.0-8.0 code = TWIN) UA PROTEIN DIPSTICK NEGATIVE mg/dL Negative (test code = PROU) UA UROBILINOGEN Negative mg/dL Negative DIPSTICK (test code = URO) UA NITRITE DIPSTICK Negative Negative (test code = ANA) UA LEUKOCYTE ESTERASE NEGATIVE Negative DIPSTICK (test code = LEUU) UA WBC (test code = 4-5 /HPF <4-5 A <10 WBC/ HPF = WBCUR) PYURIA ABSENT URINE CULTURE NOT INDICATED UA RBC (test code = 0-3 /HPF <4-5 RBCU) UA BACTERIA (test 2+ /HPF None-Rare A code = BACU) UA SQUAMOUS CELLS 0-5 (RARE) /HPF 0-5 (RARE) (test code = SQU) UA MUCUS (test code = 1+ /LPF <Rare A MUCU) less than 18 yrs old, neutropenic, or urological surgery? NOPrimary Indication for Culture: OtherOther Indication: ED PATIENTCBC W/AUTO [id number] 21:11:00 Test Item Value Reference Range Interpretation Comments WHITE BLOOD CELL (test code = 7.2 x10 3/uL 5.0-12.0 N WBC) RED BLOOD CELL (test code = 4.56 x10 6/uL 4.20-5.40 N RBC) HEMOGLOBIN (test code = HGB) 13.9 g/dL 12.0-16.0 N HEMATOCRIT (test code = HCT) 42.0 % 36.0-46.0 N MEAN CELL VOLUME (test code = 92 fL 81-99 N MCV) MEAN CELL HGB (test code = MCH) 30.5 pg 27-31 N MEAN CELL HGB CONCENTRATION 33.1 g/dL 33-37 N (test code = MCHC) RED CELL DISTRIBUTION WIDTH 12.8 % 11.5-15.5 N (test code = RDW) PLATELET COUNT (test code = 177 x10 3/uL 130-400 N PLT) MEAN PLATELET VOLUME (test code 11.6 fL 9.4-16.4 N = MPV) NEUTROPHIL % (test code = NT%) 47.4 % 43-65 N IMMATURE GRANULOCYTE % (test 0.3 % 0.0-2.0 N code = IG%) LYMPHOCYTE % (test code = LY%) 44.5 % 20.5-45.5 N MONOCYTE % (test code = MO%) 6.7 % 5.5-11.7 N EOSINOPHIL % (test code = EO%) 0.7 % 0.9-2.9 L BASOPHIL % (test code = BA%) 0.4 % 0.2-1.0 N NUCLEATED RBC % (test code = 0.0 % 0-1.0 N NRBC%) NEUTROPHIL # (test code = NT#) 3.39 x10 3/uL 2.2-4.8 N IMMATURE GRANULOCYTE # (test 0.02 x10 3/uL 0-0.03 N code = IG#) LYMPHOCYTE # (test code = LY#) 3.18 x10 3/uL 1.3-2.9 H MONOCYTE # (test code = MO#) 0.48 x10 3/uL 0.3-0.8 N EOSINOPHIL # (test code = EO#) 0.05 x10 3/uL 0.0-0.2 N BASOPHIL # (test code = BA#) 0.03 x10 3/uL 0.0-0.1 N HCG [id number] 21:10:00 Test Item Value Reference Range Interpretation Comments HCG POC (test code <5.0 IU/L 0-4.9 N = HCGPOC) Result s of 5.0-25.0 IU/L a re indeterminate a nd do not ruleout pregnan cy. Because HCG values doub le approximately e very48 hours in a norm al , tata ents with low levels ofHC G should be resampled and r etested after 48 hours toconfirm . [id number] 06:50:0012.8[facility] [id number] 06:50:003.7[facility] [id number] 06:50:00 Test Item Value Reference Range Interpretation Comments B/C Ratio (test code = B/C Ratio) 19 1 6-25 [facility] [id number] 06:50:00 Test Item Value Reference Range Interpretation Comments A/G Ratio (test code = A/G Ratio) 0.9 1 0.7-1.6 [facility] [id number] 06:50:23216Grhdhsqj HermannELECTROLYTES 2017-11-19 06:50:0097[facility] [id number] 06:50:0014[facility] YogdklvQCEJHCNKSZVR4121-18-41 06:50:000.75[facility] JumboktYDXRILNOCOLH6368-83-11 06:50:40688Shgaoahk KgggchcCCIFCRSUZKWS9309-11-56 06:50:003.8[facility] URXMEZCNMNYM2426-44-58 06:50:14873Ugpgikdk IuqtvucHGZMDHCXZXPF3203-72-38 06:50:0026[facility] OoacfhpUFRKTATFLCJI4943-78-63 06:50:008.6[facility] PPUUINGMRCFS7453-00-88 06:50:003.4[facility] CgimbxuMGJXEVRFWKLP5412-04-43 06:50:007.1[facility] DnrmafjHIOUEVBUQBWO2300-38-41 06:50:0076[facility] VGFJASXVOYNZ0118-36-20 06:50:0016[facility] ShrtyjaKJUXBNUHWMNE2419-19-48 06:50:00 23[facility] KjfcaqiQSIKLMPFGAXV0682-05-41 06:50:000.3[facility] SDSUJBLBGHJMW7228-58-71 06:50:00Negative *NA*(11/19/17 1:50 AM)[facility] JZXNTRNRLK0863-64-27 06:50:93690Utmjbeer CwgsvqaEQCABMRRZH4588-37-88 06:50:00 Test Item Value Reference Range Interpretation Comments MCH (test code = MCH) 30.9 pg 27.0-31.0 [facility] PhwnbjsFRGPWQCSPV7997-19-90 06:50:0033.9[facility]annHEMATOLOGY 2017-11-19 06:50:0010.6[facility] DxjeabnFZCPTMIWZX0935-18-10 06:50:0013.0[facility] BswycnsBVCVQEJIWR3383-28-73 06:50:0011.7[facility] QiercjbRWRFXTNMDJ1287-63-59 06:50:0038.9[facility] StwmxrbPOIORJPBOJ5257-97-84 06:50:004.27[facility] FKSLBXKSBH7933-65-00 06:50:0091.2[facility] YjdopsbUESUOUDIZT7410-07-95 06:50:00 13.2[facility] VoalmoiSLNNMXRNLP1480-93-18 06:50:000.1[facility]annHEMATOLOGY 2017-11-19 06:50:001.0[facility] EdclsxxFNEWHQEAEY3016-88-24 06:50:000.1[facility] ScjtflwAUEOHJCHZK6950-56-31 06:50:0028.6[facility] DaueibfPWLRJXMXCM4237-44-07 06:50:0062.0[facility] CgqmcslZBPFWNPCDJ1536-28-55 06:50:000.6[facility] YVLCBQETVP5494-45-70 06:50:008.3[facility] PgejyiaIZNERICSYI6824-77-50 06:50:007.3 [facility] HhxfcczJWRENESGOD0412-75-79 06:50:000.5[facility]annHEMATOLOGY 2017-11-19 06:50:003.3[facility] HermannPREGNANCY SCREEN, BXHNU1425-83-58 18:33:00 Test Item Value Reference Range Interpretation Comments TEST URINE (BEAKER) (test Negative code = 583) URINALYSIS W/ RYKZZTZDVUR3199-87-49 18:32:00 Test Item Value Reference Range Interpretation Comments COLOR (BEAKER) (test code = 470) Light Yellow CLARITY (BEAKER) (test code = Clear 469) SPECIFIC GRAVITY UA (BEAKER) 1.010 1.001-1.035 (test code = 468) PH UA (BEAKER) (test code = 467) 7.0 5.0-8.0 PROTEIN UA (BEAKER) (test code = Negative Negative 464) GLUCOSE UA (BEAKER) (test code = Negative Negative 365) KETONES UA (BEAKER) (test code = Negative Negative 371) BILIRUBIN UA (BEAKER) (test code Negative Negative = 462) BLOOD UA (BEAKER) (test code = Negative Negative 461) NITRITE UA (BEAKER) (test code = Negative Negative 465) LEUKOCYTE ESTERASE UA (BEAKER) Negative Negative (test code = 466) UROBILINOGEN UA (BEAKER) (test < mg/dL 0.2-1.0 code = 463) RBC UA (BEAKER) (test code = < /HPF 519) WBC UA (BEAKER) (test code = < /HPF 520) MUCUS (BEAKER) (test code = Rare 1574) SQUAMOUS EPITHELIAL (BEAKER) 1 /HPF (test code = 516) SOURCE(BEAKER) (test code = 2795) WET [id number] 18:23:00 Test Item Value Reference Range Interpretation Comments WBC WET PREP Few white blood cells (BEAKER) (test code seen = 528) CLUE CELLS (BEAKER) No clue cells seen (test code = 526) YEAST WET PREP No budding yeast seen (BEAKER) (test code = 530) TRICH WET PREP No Trichomonas seen (BEAKER) (test code = 531) BACT WET PREP Few bacteria seen (BEAKER) (test code = 532) COMPREHENSIVE METABOLIC [id number] 17:59:00 Test Item Value Reference Range Interpretation Comments TOTAL PROTEIN 6.6 gm/dL 6.0-8.5 Specimen sligh tly (BEAKER) (test code = hemoly zed 770) ALBUMIN (BEAKER) 4.1 g/dL 3.5-5.0 Specimen sl ightly (test code = 1145) hemolyzed ALKALINE PHOSPHATASE 54 U/L 30-115 (BEAKER) (test code = 346) BILIRUBIN TOTAL 0.5 mg/dL 0.1-1.3 Specimen sli ghtly (BEAKER) (test code = hemoly zed 377) SODIUM (BEAKER) (test 137 meq/L 135-148 code = 381) POTASSIUM (BEAKER) 3.7 meq/L 3.5-5.5 Specimen slightly (test code = 379) hemolyzed CHLORIDE (BEAKER) 104 meq/L 98-106 (test code = 382) CO2 (BEAKER) (test 21 meq/L 20-31 code = 355) BLOOD UREA NITROGEN 6 mg/dL 10-26 L (BEAKER) (test code = 354) CREATININE (BEAKER) 0.68 mg/dL 0.50-1.20 Specimen slightly (test code = 358) hemolyzed GLUCOSE RANDOM 84 mg/dL 70-110 (BEAKER) (test code = 652) CALCIUM (BEAKER) 9.2 mg/dL 8.5-10.5 (test code = 697) AST (SGOT) (BEAKER) 41 U/L 5-40 H Specimen slightly (test code = 353) hemolyzed ALT (SGPT) (BEAKER) 25 U/L 6-50 Specimen slightly (test code = 347) hemolyzed EGFR (BEAKER) (test 101 ESTIMATE D GFR IS code = 1092) mL/min/1.73 sq NOT ACCURA TE m CREATININE CLEARANCE IN PREDICTING GLOMERULAR FILTRATION RATE . ESTIMATED GFR I S NOT APPLICABLE FOR DIALYSIS PATIEN TS. CBC W/PLT COUNT & AUTO [id number] 17:28:00 Test Item Value Reference Range Interpretation Comments WHITE BLOOD CELL COUNT (BEAKER) 7.4 K/ L 4.0-10.0 (test code = 775) RED BLOOD CELL COUNT (BEAKER) 4.35 M/ L 4.00-5.00 (test code = 761) HEMOGLOBIN (BEAKER) (test code = 13.4 GM/DL 12.0-15.0 410) HEMATOCRIT (BEAKER) (test code = 39.8 % 36.0-45.0 411) MEAN CORPUSCULAR VOLUME (BEAKER) 91.5 fL 82.0-99.0 (test code = 753) MEAN CORPUSCULAR HEMOGLOBIN 30.8 pg 27.0-33.0 (BEAKER) (test code = 751) MEAN CORPUSCULAR HEMOGLOBIN CONC 33.7 GM/DL 32.0-36.0 (BEAKER) (test code = 752) RED CELL DISTRIBUTION WIDTH 12.9 % 12.0-15.0 (BEAKER) (test code = 412) PLATELET COUNT (BEAKER) (test 184 K/CU MM 150-430 code = 756) MEAN PLATELET VOLUME (BEAKER) 9.8 fL 6.5-10.5 (test code = 754) NUCLEATED RED BLOOD CELLS 0 /100 WBC 0-0 (BEAKER) (test code = 413) NEUTROPHILS RELATIVE PERCENT 58 % (BEAKER) (test code = 429) LYMPHOCYTES RELATIVE PERCENT 34 % (BEAKER) (test code = 430) MONOCYTES RELATIVE PERCENT 7 % (BEAKER) (test code = 431) EOSINOPHILS RELATIVE PERCENT 1 % (BEAKER) (test code = 432) BASOPHILS RELATIVE PERCENT 1 % (BEAKER) (test code = 437) NEUTROPHILS ABSOLUTE COUNT 4.30 K/ L 1.80-8.00 (BEAKER) (test code = 670) LYMPHOCYTES ABSOLUTE COUNT 2.60 K/ L 1.48-4.50 (BEAKER) (test code = 414) MONOCYTES ABSOLUTE COUNT (BEAKER) 0.50 K/ L 0.00-1.30 (test code = 415) EOSINOPHILS ABSOLUTE COUNT 0.10 K/ L 0.00-0.50 (BEAKER) (test code = 416) BASOPHILS ABSOLUTE COUNT (BEAKER) 0.00 K/ L 0.00-0.20 (test code = 417) MOLECULAR [id number] 17:26:00Endocervix *NA*(06/20/17 12:26 PM)[facility] CUETGRJDOK2611-06-06 17:26:00Negative *NA*(06/20/17 12:26 PM) [facility] WUMZVCBEIM1679-45-36 17:26:00Negative *NA*(06/20/17 12:26 PM)[facility]ann[facility] BURVM5833-91-05 16:27:60553Bgxgvafv HermannCHEM USCMI8701-35-71 16:27:32427Wsmblfhb HermannCHEM QBNLP6542-02-78 16:27:0061 [facility] OFILX3923-95-48 16:27:000.4[facility]annCHE[facility] PANEL 2017-06-20 16:27:0019[facility]annCHE[facility] UORDO3376-71-87 16:27:0021[facility]annCHE[facility] RVPJR5984-81-47 16:27:003.5[facility]annCHE[facility] YZTBG0664-11-07 16:27:006.3[facility]ann[facility] PJDUD3295-88-59 16:27:008.3[facility]annCHE[facility] AKRUE3681-47-93 16:27:000.69[facility]annCHE[facility] XSJGD9374-12-86 16:27:06494 [facility]CHE[facility] SRMCT1911-28-99 16:27:0077[facility]annCHE[facility] PANEL 2017-06-20 16:27:0027[facility]annCHE[facility] POPWY7050-09-98 16:27:003.4[facility]annCHE[facility] AVLZD8356-83-27 16:27:43860Xstflzzd [facility]annCHE[facility] URPSZ8754-11-44 16:27:0011[facility]annCHE[facility] SPQCO9863-49-42 16:27:002.8[facility]annCHE[facility] [id number] 16:27:00 Test Item Value Reference Range Interpretation Comments B/C Ratio (test code = B/C Ratio) 16 1 6-25 [facility] [id number] 16:27:0010.4[facility]annCHEM PANEL 2017-06-20 16:27:00 Test Item Value Reference Range Interpretation Comments A/G Ratio (test code = A/G Ratio) 1.2 1 0.7-1.6 [facility] IlgekluWKDEAWMWYSVNF5324-00-30 16:27:00Negative *NA*(06/20/17 11:27 AM) [facility] ClfrcnrTFXVZYYRGB6166-34-62 16:27:0013.1[facility]annHEMATOLOGY 2017-06-20 16:27:004.21[facility] OjjmmslLOFEGDMDSV9133-93-53 16:27:007.7[facility] GerbctwEPKKODYQHF8601-40-19 16:27:0038.6[facility] MqryduzKAKFBDKEOW6965-84-50 16:27:0034.0[facility] KmabwbkBWFZQIMQWU2223-73-60 16:27:00 Test Item Value Reference Range Interpretation Comments MCH (test code = MCH) 31.2 pg 27.0-31.0 [facility] MoscdvqOWZUKKVYVQ6020-77-47 16:27:0091.8[facility]annHEMATOLOGY 2017-06-20 16:27:0010.8[facility] FnpiyucPWQBPQLPIO2710-50-73 16:27:53338Zbeqmifk BitkhwfGOZPJSUFLQ2406-09-23 16:27:0012.6[facility] JhvjpacSDWMSSCHDQ0753-14-00 16:27:000.5[facility] RqxqpdtIWBKKSYKIT2596-87-10 16:27:008.1[facility] PHZFQKMDVH9626-97-85 16:27:0031.8[facility] ShawlkyCUABGDBWGJ0106-96-58 16:27:00 58.8[facility] NqcrygdWQWCJTHBXR0494-53-13 16:27:000.6[facility]annHEMATOLOGY 2017-06-20 16:27:002.4[facility] QhwedzgOZCQPDNBEU5010-25-23 16:27:004.5[facility] KrwbzibAHEODEOIWT5666-24-26 16:27:000.8[facility] UutqkjlBROUKKDRQG2600-97-29 16:27:000.1[facility] JAZCA4808-70-34 16:27:002[facility]INE AND FBTFI5383-29-45 16:27:003[facility] GQQBD1451-15-59 16:27:0010[facility] QFUGF5499-39-01 16:27:004[facility]INE AND LLAUT3805-55-46 16:27:00Yellow *NA*(06/20/17 11:27 AM)[facility] URINE AND [id number] 16:27:00 Test Item Value Reference Range Interpretation Comments UA pH (test code = UA pH) 6.0 1 5.0-8.0 [facility] [id number] 16:27:00 Test Item Value Reference Range Interpretation Comments UA Spec Grav (test code = UA Spec 1.016 1 Grav) [facility] VYMSL8687-03-05 16:27:00Slight *ABN*(06/20/17 11:27 AM) [facility] [id number] 16:27:00Trace *ABN*(06/20/17 11:27 AM) [facility] WVBXB8560-76-57 16:27:00Negative (06/20/17 11:27 AM) [facility] TOQLI6067-09-05 16:27:00Negative (06/20/17 11:27 AM) [facility] JGSBW9544-22-64 16:27:00Negative *NA*(06/20/17 11:27 AM) [facility]LE[facility] PQQMOTQRIG0919-28-06 18:20:00Endocervix *NA*(02/28/17 12:20 PM)[facility]ann[facility]LEC[facility] OFSTESTRWE4389-82-19 18:20:00Negative *NA*(02/28/17 12:20 PM)[facility] GFJGWOZDRB5327-60-51 18:20:00 Negative *NA*(02/28/17 12:20 PM)[facility] TGCSI4042-63-93 18:20:00Marked *ABN*(02/28/17 12:20 PM)[facility] NCPJU9817-87-98 18:20:00Yellow *NA*(02/28/17 12:20 PM)[facility] EZNZI8027-24-87 18:20:003[facility] IFPFZ6954-14-09 18:20:00Negative (02/28/17 12:20 PM)[facility] XFMOB5681-82-63 18:20:006[facility] URINE AND [id number] 18:20:00 Test Item Value Reference Range Interpretation Comments UA Spec Grav (test code = UA Spec 1.024 1 Grav) [facility] [id number] 18:20:00 Test Item Value Reference Range Interpretation Comments UA pH (test code = UA pH) 6.0 1 5.0-8.0 [facility] [id number] 18:20:00Negative *NA*(02/28/17 12:20 PM)[facility] LOTSO3245-68-88 18:20:008[facility] FVUAK1318-75-97 18:20:00Negative (02/28/17 12:20 PM)[facility] ZUXXV0491-79-28 18:20:00Positive *ABN*(02/28/17 12:20 PM)[facility] QXPU8550-59-48 18:20:00Negative (02/28/17 12:20 PM)[facility]annMOLECULAR WBWKOKLFUP4810-23-91 15:47:00Negative *NA*(07/03/16 10:47 AM)[facility] MOLECULAR UWPOOEPFYH5551-91-48 15:47:00Vaginal *NA*(07/03/16 10:47 AM)[facility] OMAQWORLUM7991-27-92 15:47:00Negative *NA*(07/03/16 10:47 AM) [facility] ZHVGA3855-64-31 15:47:003[facility] RCQLW4061-84-60 15:47:002[facility] FBGWV9582-64-25 15:47:00Trace *ABN*(07/03/16 10:47 AM)[facility] SHCVF9846-12-16 15:47:00 Negative (07/03/16 10:47 AM)[facility] IRBFR5849-70-78 15:47:0022 [facility] NAHJA1636-93-08 15:47:00Negative *NA*(07/03/16 10:47 AM)[facility] SOPNP9485-08-25 15:47:00Negative (07/03/16 10:47 AM) [facility] SSIKO1222-87-24 15:47:00Slight *ABN*(07/03/16 10:47 AM) [facility] YXKZT9352-10-82 15:47:001.016[facility] FXIKN8573-01-90 15:47:005.0[facility] PUTIL3072-99-15 15:47:00 Yellow *NA*(07/03/16 10:47 AM)[facility] GeaggccWGSEIKRQMM4579-19-63 19:31:00 Negative *NA*(09/29/14 2:31 PM)[facility]annCHEM MINYJ7731-71-65 17:13:72587 [facility]CHE[facility] BNMSQ6413-87-48 17:13:72631Koqzvwix HermannCHEM PANEL 2014-09-29 17:13:006.7[facility]annCHE[facility] BGSDN2482-53-96 17:13:003.5[facility]annCHE[facility] CVWXB6668-07-89 17:13:0019[facility]annCHE[facility] BMAOZ3683-01-51 17:13:000.7[facility]annCHEM XSACX8655-64-12 17:13:08201Yaapbovo HermannCHEM UMIFH3850-36-07 17:13:003.7[facility]annCHE[facility] UEWRU8392-29-63 17:13:0029 [facility]CHE[facility] DMEOO6680-22-37 17:13:008.4[facility]annCHEM PANEL 2014-09-29 17:13:60974Ltsozuyi HermannCHEM LNKGG4140-03-67 17:13:000.3[facility]annCHE[facility] FBMHX1259-74-52 17:13:0061[facility]annCHE[facility] ADSHR3077-71-77 17:13:0012[facility]annCHE[facility] DEPMF2603-65-55 17:13:0013[facility]annCHEM AMRSA7983-01-83 17:13:0061[facility]annCHE[facility] BQAPJ0921-05-96 17:13:001.1 [facility]CHE[facility] TRHUV7747-28-57 17:13:003.2[facility]annCHEM PANEL 2014-09-29 17:13:009.7[facility]annCHEM SWATF3205-99-01 17:13:0019[facility] IsoawvaFKHEDXYEUEIQL8594-30-04 17:13:00Negative *NA*(09/29/14 12:13 PM)[facility] OxvqokySLWEHVSGBZ3169-61-92 17:13:0032.3[facility] JplxmlbAHYZENBYQW6525-37-04 17:13:0013.2[facility] KneuytxGUQRBDKDWH2808-08-67 17:13:0040.8[facility] CWQAOETQUP8402-44-36 17:13:00 Test Item Value Reference Range Interpretation Comments MCH (test code = MCH) 30.2 pg 27.0-31.0 [facility] VzyoyljBSQIAIAKUF0321-05-87 17:13:0093.5[facility]annHEMATOLOGY 2014-09-29 17:13:50505Ttangkka OgcnyrnOGCDEJVBPG3680-76-96 17:13:0010.5[facility] FeqlywgXUGTTBAKXD1235-02-90 17:13:0013.4[facility] MndycabAUSKCHCHPW1538-63-12 17:13:007.6[facility] DntrfmrGVEPIMANUI2039-17-58 17:13:004.36[facility] DHOXMFOIOI3509-04-08 17:13:0062.9[facility] KhjydciFXHQEQXJOZ6477-30-87 17:13:00 1.0[facility] KuavjdiKHQLLAHSUG5983-60-01 17:13:000.8[facility]annHEMATOLOGY 2014-09-29 17:13:002.2[facility] QnphbolHHJFUCYPGI5854-90-22 17:13:000.5[facility] YdamqheFPGMFFDBBD0895-22-05 17:13:000.1[facility] KehqnelBUISJPYTKL2725-34-99 17:13:004.8[facility] BwzcrsbXMZASZZEWR4009-15-10 17:13:0029.2[facility] GVGRBWJGXL0622-37-90 17:13:006.1[facility] HltjlczKVHHCBDTDC9737-81-46 17:13:000.1 [facility] AwvtkpiWSUUWVWXFX1230-63-30 17:13:00Negative (09/29/14 12:13 PM)[facility] TIPXN1185-84-67 17:13:00None Seen (09/29/14 12:13 PM)[facility] FRPPF8393-33-20 17:13:00Negative *NA*(09/29/14 12:13 PM)[facility] AGKMF7115-32-59 17:13:00Negative *NA*(09/29/14 12:13 PM)[facility] XGYJI0032-86-50 17:13:00Negative (09/29/14 12:13 PM)[facility] KFIIB9176-16-17 17:13:00 Test Item Value Reference Range Interpretation Comments UA pH (test code = UA pH) 5.5 1 5.0-8.0 [facility] VRSCS2246-90-49 17:13:00Negative (09/29/14 12:13 PM) [facility] UTGGC1015-93-86 17:13:00>=1.030 *ABN*(09/29/14 12:13 PM)[facility] ZHPUQ6033-04-63 17:13:00Negative (09/29/14 12:13 PM) [facility] IYNBU7594-25-77 17:13:000.2[facility] PLFHF9239-99-66 17:13:00Negative (09/29/14 12:13 PM)[facility] JJZKZ0269-61-28 17:13:00Negative (09/29/14 12:13 PM)[facility] YMNKB0492-42-84 17:13:00Slight Cloudy (09/29/14 12:13 PM)[facility]annKEVIN AND AOWCB1680-01-16 17:13:00Yellow *NA*(09/29/14 12:13 PM)[facility]
[2020-07-11 02:22] LABS: Urine Blood Negative (Negative); Urine Glucose Negative (Negative); Urine Protein Negative (Negative); Urine Specific Gravity >=1.030 (1.005-1.030); Urine pH 5.5 (5.0-7.0)
[2020-07-11 02:33] LABS: Urine Appearance CLEAR (Clear); Urine Bilirubin NEGATIVE (Negative); Urine Blood NEGATIVE (Negative); Urine Color YELLOW (Yellow); Urine Glucose NEGATIVE (Negative); Urine Protein NEGATIVE (Negative); Urine Specific Gravity 1.025 (1.005-1.030); Urine Urobilinogen 0.2 mg/dL (0.2-1.0); Urine pH 5.5 (5.0-7.0)
[2020-07-11 02:34] LABS: Urine Microscopic Reflex ORDER UMIC
[2020-07-11 02:43] LABS: Urine Bacteria 20-50 /HPF (<20); Urine RBC <5 /HPF (NONE SEEN)
[2020-07-11 02:44] LABS: Urine Specific Gravity/Preg >1.030 (1.005-1.030)
[2020-07-11] MEDS ORDERED: METRONIDAZOLE 500mg IVPB 500 MG/100 ML BAG IV ONE (03:20)
[2020-07-11] MEDS ORDERED: MORPHINE 4 MG/ML SYR ONE (03:20)
[2020-07-11] MEDS ORDERED: ONDANSETRON 4 MG/2 ML VIAL ONE (03:20)
[2020-07-11] MEDS ORDERED: NA CHLORIDE 0.9% 1,000 ML ONE (03:20)
[2020-07-11] MEDS ORDERED: CEFTRIAXONE/SWI 1gm 1 GM/10 ML SYR ONE (03:20)
[2020-07-11 03:37] LABS: Absolute Lymphocytes (CBC) 2.6 K/uL (0.7-4.9); Basophils % 0.6 % (0-1.3); Hematocrit 40.7 % (36.0-45.0); Lymphocytes % 31.4 % (15.3-44.8); MPV 11.2 fL (7.6-11.3); RBC Red Blood Cell Count 4.49 M/uL (3.86-4.86)
[2020-07-11 03:45] LABS: ALT/SGPT 21 U/L (12-78); AST/SGOT 13 U/L (15-37); Albumin 3.5 g/dL (3.4-5.0); Alkaline Phosphatase 69 U/L (45-117); BUN Blood Urea Nitrogen 16 mg/dL (7-18); Bicarbonate 31 mmol/L (21-32); Bilirubin Direct < 0.1 mg/dL (0-0.2); Bilirubin Total 0.3 mg/dL (0.2-1.0); Glucose Level 64 mg/dL (74-106); Lipase 87 U/L (73-393); Potassium 4.1 mmol/L (3.5-5.1); Protein, Total 6.8 g/dL (6.4-8.2); Sodium Level 141 mmol/L (136-145)
--- NOTE | 2020-07-11 04:50 | EDPHYS ---
Physician Documentation [facility] Name: Valerie Chaudhry Age: 34 yrs Sex: Female : 1985 Arrival Date: 07/11/2020 Time: 01:44 Bed 17 Private MD: ED Physician Randell Min HPI: 07/11 03:06 This 34 yrs old Female presents to ER via Ambulatory with complaints of ma2 Abdominal Pain. 03:06 The patient presents with abdominal pain. Onset: The symptoms/episode began/occurred ma2 gradually, 3 day(s) ago. Associated signs and symptoms: Pertinent negatives: anorexia, constipation, dysuria. Severity of pain: At its worst the pain was mild in the emergency department the pain is unchanged. The patient has experienced similar episodes in the past. 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 Pneumococcal vaccine is not up to date. - Social history:: Smoking status: Patient reports the use of cigarette tobacco products, smokes one-half pack cigarettes per day, Patient/guardian denies using alcohol, street drugs, The patient lives with family. - Family history:: not pertinent. ROS: 03:06 Constitutional: Negative for fever, chills, and weight loss, Eyes: Negative for injury, ma2 pain, redness, and discharge, ENT: Negative for injury, pain, and discharge, Neck: Negative for injury, pain, and swelling, Cardiovascular: Negative for chest pain, palpitations, and edema, Respiratory: Negative for shortness of breath, cough, wheezing, and pleuritic chest pain, Abdomen/GI: Negative for abdominal pain, nausea, diarrhea, and constipation, Back: Negative for injury and pain, Skin: Negative for injury, rash, and discoloration, Psych: Negative for depression, anxiety, suicide ideation, homicidal ideation, and hallucinations, Endocrine: Negative for neck swelling, polydipsia, polyuria, polyphagia, and marked weight changes. 03:06 All other systems are negative. ma2 Exam: 03:06 Constitutional: This is a well developed, well nourished patient who is awake, alert, ma2 and in no acute distress. Head/Face: Normocephalic, atraumatic. Eyes: Pupils equal round and reactive to light, extra-ocular motions intact. Lids and lashes normal. Conjunctiva and sclera are non-icteric and not injected. Cornea within normal limits. Periorbital areas with no swelling, redness, or edema. ENT: Nares patent. No nasal discharge, no septal abnormalities noted. Tympanic membranes are normal and external auditory canals are clear. Oropharynx with no redness, swelling, or masses, exudates, or evidence of obstruction, uvula midline. Mucous membranes moist. Neck: Trachea midline, no thyromegaly or masses palpated, and no cervical lymphadenopathy. Supple, full range of motion without nuchal rigidity, or vertebral point tenderness. No Meningismus. Chest/axilla: Normal chest wall appearance and motion. Nontender with no deformity. No lesions are appreciated. Cardiovascular: Regular rate and rhythm with a normal S1 and S2. No gallops, murmurs, or rubs. Normal PMI, no JVD. No pulse deficits. Respiratory: Lungs have equal breath sounds bilaterally, clear to auscultation and percussion. No rales, rhonchi or wheezes noted. No increased work of breathing, no retractions or nasal flaring. Abdomen/GI: Soft, non-tender, with normal bowel sounds. No distension or tympany. No guarding or rebound. No evidence of tenderness throughout. Back: No spinal tenderness. No costovertebral tenderness. Full range of motion. Skin: Warm, dry with normal turgor. Normal color with no rashes, no lesions, and no evidence of cellulitis. MS/ Extremity: Pulses equal, no cyanosis. Neurovascular intact. Full, normal range of motion. Neuro: Awake and alert, GCS 15, oriented to person, place, time, and situation. Cranial nerves II-XII grossly intact. Motor strength 5/5 in all extremities. Sensory grossly intact. Cerebellar exam normal. Normal gait. Vital Signs: 02:08 BP 116 / 81; Pulse 110; Resp 16; Pulse Ox 100% on R/A; Weight 56.7 kg; Height 4 ft. 11 iw in. (149.86 cm); Pain 5/10; 04:50 BP 120 / 70; Pulse 80; Resp 16; Temp 98.2; Pulse Ox 99% ; ea 02:08 Body Mass Index 25.25 (56.70 kg, 149.86 cm) iw MDM: 02:12 Patient medically screened. [facility] 03:06 Differential diagnosis: gastritis, Irritable bowel syndrome, pancreatitis, urinary ma2 tract infection. 04:49 Data reviewed: vital signs, nurses notes. Counseling: I had a detailed discussion with [facility] the patient and/or guardian regarding: the historical points, exam findings, and any diagnostic results supporting the discharge/admit diagnosis, the presence of at least one elevated blood pressure reading (>120/80) during this emergency department visit, the need for outpatient follow up. Response to treatment: the patient's symptoms have markedly improved after treatment. 07/11 02:00 Order name: Basic Metabolic Panel [facility] 07/11 02:00 Order name: CBC with Diff [facility] 07/11 02:00 Order name: Hepatic Function [facility] 07/11 02:00 Order name: Lipase [facility] 07/11 02:22 Order name: Urine Dipstick-Ancillary; Complete Time: 02:46 [facility] 07/11 02:24 Order name: Urine --Ancillary (enter results); Complete Time: 02:46 [facility] 07/11 02:26 Order name: Urinalysis; Complete Time: 02:46 [facility] 07/11 02:26 Order name: Urine Culture [facility] 07/11 02:35 Order name: Urine Microscopic Only; Complete Time: 02:46 [facility] 07/11 02:52 Order name: CT Abd/Pelvis - IV Contrast Only [facility] 07/11 02:00 Order name: IV Saline Lock; Complete Time: 02:38 [facility] 07/11 02:00 Order name: Labs collected and sent; Complete Time: 02:38 [facility] 07/11 02:00 Order name: Urine Dipstick-Ancillary (obtain specimen); Complete Time: 02:38 [facility] 07/11 02:00 Order name: Urine Test (obtain specimen); Complete Time: 02:38 [facility] Administered Medications: 03:13 Drug: NS 0.9% 1000 ml Route: IV; Rate: 1 bolus; Site: right antecubital; ea 04:00 Follow up: IV Status: Completed infusion; IV Intake: 1000ml ea 03:13 Drug: NS 0.9% 1000 ml Route: IV; Rate: 1 bolus; Site: right antecubital; ea 04:50 Follow up: Response: No adverse reaction; IV Status: Completed infusion; IV Intake: ea 1000ml 03:13 Drug: Zofran (Ondansetron) 4 mg Route: IVP; Site: right antecubital; ea 04:00 Follow up: Response: No adverse reaction ea 03:13 Drug: morphine 4 mg Route: IVP; Site: right antecubital; ea 04:00 Follow up: Response: No adverse reaction ea 03:21 Drug: Rocephin (cefTRIAXone) 1 grams Route: IV; Rate: calculated rate; Site: right ea antecubital; 04:00 Follow up: IV Status: Completed infusion ea 03:22 Drug: Flagyl (metroNIDAZOLE) 500 mg Volume: 100 ml; Route: IVPB; Rate: 200 ml/hr; ea Infused Over: 30 mins; Site: right antecubital; 04:00 Follow up: Response: No adverse reaction; IV Status: Completed infusion ea Disposition: 07/11/20 04:49 Discharged to Home. Impression: Constipation, unspecified. - Condition is Stable. - Discharge Instructions: Constipation, Adult. - Prescriptions for Diclofenac Sodium 75 mg Oral Tablet Sustained Release - take 1 tablet by ORAL route 2 times per day; 30 tablet. BIO- BOOST - take 1 tablet by ORAL route every 24 hours; 30 tablet. Dulcolax 10 mg Rectal Suppository - insert 1 suppository by RECTAL route every 6 hours As needed; 10 suppository. - Medication Reconciliation Form, Thank You Letter, Antibiotic Education, Prescription Opioid Use form. - Follow up: Private Physician; When: Tomorrow; Reason: Continuance of care. Signatures: Dispatcher [employer] Светлана Noel RN RN iw Antunez, Elena, RN RN ea Alzahri, Mohammad, MD MD ma2 Corrections: (The following items were deleted from the chart) 05:08 04:49 07/11/2020 04:49 Discharged to Home. Impression: Constipation, unspecified. ea Condition is Stable. Prescriptions for Cipro 500 mg Oral Tablet - take 1 tablet by ORAL route every 12 hours for 10 days; 20 tablet, Zofran 4 mg Oral Tablet - take 1 tablet by ORAL route every 12 hours As needed; 20 tablet, Diclofenac Sodium 75 mg Oral Tablet Sustained Release - take 1 tablet by ORAL route 2 times per day; 30 tablet. and Forms are Medication Reconciliation Form, Thank You Letter, Antibiotic Education, Prescription Opioid Use. Follow up: Private Physician; When: Tomorrow; Reason: Continuance of care. ma2
--- NOTE | 2020-07-11 04:50 | ER ---
Nurse's Notes [facility] Name: Valerie Chaudhry Age: 34 yrs Sex: Female : 1985 Arrival Date: 07/11/2020 Time: 01:44 Bed 17 Private MD: Diagnosis: Constipation, unspecified Presentation: 07/11 02:08 Chief complaint: Patient states: has had LLQ pain intermittent for past week, hx of iw colitis, today had a lot of cramps, is only having BM once a week. Coronavirus screen: At this time, the client does not indicate any symptoms associated with coronavirus-19. Ebola Screen: Patient negative for fever greater than or equal to 101.5 degrees Fahrenheit, and additional compatible Ebola Virus Disease symptoms Patient denies exposure to infectious person. Patient denies travel to an Ebola-affected area in the 21 days before illness onset. No symptoms or risks identified at this time. Initial Sepsis Screen: Does the patient meet any 2 criteria? No. Patient's initial sepsis screen is negative. Does the patient have a suspected source of infection? No. Patient's initial sepsis screen is negative. Risk Assessment: Do you want to hurt yourself or someone else? Patient reports no desire to harm self or others. Onset of symptoms was June 24, 2020. 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 Pneumococcal vaccine is not up to date. - Social history:: Smoking status: Patient reports the use of cigarette tobacco products, smokes one-half pack cigarettes per day, Patient/guardian denies using alcohol, street drugs, The patient lives with family. - Family history:: not pertinent. Screenin:28 Abuse screen: Denies threats or abuse. Nutritional screening: No deficits noted. ea Tuberculosis screening: No symptoms or risk factors identified. Fall Risk None identified. Assessment: 02:38 General: Appears in no apparent distress. Behavior is calm, appropriate for age. Pain: ea Complains of pain in left lower quadrant. Neuro: Level of Consciousness is awake, alert, obeys commands, Oriented to person, place, time. Respiratory: Airway is patent Respiratory effort is even, unlabored, Respiratory pattern is regular, symmetrical. Derm: Skin is pink, warm \T\ dry. 05:08 Reassessment: Patient and/or family updated on plan of care and expected duration. Pain ea level reassessed. Patient is alert, oriented x 3, equal unlabored respirations, skin warm/dry/pink. Discharge instruction given to patient verbalized the understanding of instruction pt left ED ambulatory tolerating well. Vital Signs: 02:08 BP 116 / 81; Pulse 110; Resp 16; Pulse Ox 100% on R/A; Weight 56.7 kg; Height 4 ft. 11 iw in. (149.86 cm); Pain 5/10; 04:50 BP 120 / 70; Pulse 80; Resp 16; Temp 98.2; Pulse Ox 99% ; ea 02:08 Body Mass Index 25.25 (56.70 kg, 149.86 cm) iw ED Course: 01:44 Patient arrived in ED. es 01:59 Randell Min MD is Attending Physician. ma2 02:09 Triage completed. iw 02:10 Arm band placed on. iw 02:28 Camille Isaac, KENNEDY is Primary Nurse. ea 02:28 Patient has correct armband on for positive identification. Bed in low position. Call ea light in reach. Side rails up X2. 02:37 Inserted saline lock: 20 gauge in right antecubital area, using aseptic technique. ea Blood collected. 04:19 CT Abd/Pelvis - IV Contrast Only In Process Unspecified. EDMS 05:07 No provider procedures requiring assistance completed. IV discontinued, intact, ea bleeding controlled, No redness/swelling at site. Pressure dressing applied. Administered Medications: 03:13 Drug: NS 0.9% 1000 ml Route: IV; Rate: 1 bolus; Site: right antecubital; ea 04:00 Follow up: IV Status: Completed infusion; IV Intake: 1000ml ea 03:13 Drug: NS 0.9% 1000 ml Route: IV; Rate: 1 bolus; Site: right antecubital; ea 04:50 Follow up: Response: No adverse reaction; IV Status: Completed infusion; IV Intake: ea 1000ml 03:13 Drug: Zofran (Ondansetron) 4 mg Route: IVP; Site: right antecubital; ea 04:00 Follow up: Response: No adverse reaction ea 03:13 Drug: morphine 4 mg Route: IVP; Site: right antecubital; ea 04:00 Follow up: Response: No adverse reaction ea 03:21 Drug: Rocephin (cefTRIAXone) 1 grams Route: IV; Rate: calculated rate; Site: right ea antecubital; 04:00 Follow up: IV Status: Completed infusion ea 03:22 Drug: Flagyl (metroNIDAZOLE) 500 mg Volume: 100 ml; Route: IVPB; Rate: 200 ml/hr; ea Infused Over: 30 mins; Site: right antecubital; 04:00 Follow up: Response: No adverse reaction; IV Status: Completed infusion ea Intake: 04:00 IV: 1000ml; Total: 1000ml. ea 04:50 IV: 1000ml; Total: 2000ml. ea Outcome: 04:49 Discharge ordered by MD. george 05:07 Discharged to home ambulatory, with family. ea 05:07 Condition: stable 05:07 Discharge instructions given to patient, Instructed on discharge instructions, follow up and referral plans. medication usage, Demonstrated understanding of instructions, follow-up care, medications. 05:08 Patient left the ED. ea Signatures: Dispatcher [employer] Macie Blandon Irene, Camille Mello RN, RN RN ea Alzahri, Mohammad, MD MD ma2 Corrections: (The following items were deleted from the chart) 05:07 04:50 BP 120 / 70; Pulse 16bpm; Resp 80bpm; Pulse Ox 99%; Temp 98.2F; ea estuardo
[2020-07-11 05:25] VITALS: BP 120/70; TEMP 98.2; O2SAT 99
--- NOTE | 2020-07-11 10:51 | RAD REPORT ---
EXAM DESCRIPTION: CT Abdomen and Pelvis COMPARISON: None. CLINICAL HISTORY: [facility] MAIN ABD PAIN TECHNIQUE: CT of the abdomen and pelvis was acquired with IV contrast material. Coronal and sagitt al reconstructions were obtained. Automated exposure control was utilized on this examination as a dose lowering technique. FINDINGS: Lung bases: Clear. Liver: Normal. Gallbladder and biliary: Normal gallbladder. Unremarkable biliary tree. Pancreas: Normal. Spleen: Normal. Adrenal glands: Mild bilateral adrenal hyperplasia. Kidneys: Normal kidneys Stomach and Small Bowel: The stomach and small bowel are normal. Urinary bladder: Trace intravesicular gas is noted. Uterus and Adnexa: A right corpus luteum is noted. No follow-up imaging is recommended for this. Othe rwise, unremarkable. Colon and Appendix: There is a large stool burden. The colon is otherwise unremarkable. No evidence o f appendicitis. Retroperitoneum and lymph nodes: Normal. Vascular: Normal. Peritoneal cavity: Trace pelvic fluid is likely physiologic. No intraperitoneal free air. Musculoskeletal and soft tissues: Soft tissues are unremarkable. No aggressive bone lesions. No com pression fracture. IMPRESSION: 1. Constipation. 2. Trace intravesicular air may be iatrogenic and less likely due to cystitis. Electronically signed by: Cristhian Caballero MD 07/11/2020 4:35 AM CDT Due to temporary technical issues with the PACS/Fluency reporting system, reports are being signed by the in house radiologist without review as a courtesy to ensure prompt reporting. The interpreting r adiologist is fully responsible for the content of the report.
== END 2020-07-11 05:08 | disposition home or self-care (01) ==
LOC: ER 01:41
DX: K59.00 Constipation, unspecified (principal); F17.210 Nicotine dependence, cigarettes, uncomplicated
CPT/HCPCS: 36415; 74177; 80048; 80076; 81003; 81015; 81025; 83690; 85025; 87077; 87086; 87088; 87186; 96361; 96365; 96375; 99284; J0696; J2405; J7030; Q9967